=== PATIENT | female | born 1990 | race Hispanic/Latino ===

== ENCOUNTER 2016-09-26 09:32 | Emergency (ER) | payer MEDICAID, OTHER ==
[2016-09-26 09:32] VITALS: BMI 35.0
[2016-09-26 09:38] VITALS: BP 117/68; PULSE 79; RESP 18; TEMP 98.7; O2SAT 100
[2016-09-26] MEDS ORDERED: Naproxen 500 MG TAB PO ONE ×2 (10:15→10:22)
--- NOTE | 2016-09-26 10:38 | RAD ---
HISTORY: cough for 4 days COMPARISON: No prior. TECHNIQUE: Chest PA and lateral FINDINGS: LUNGS: No active pulmonary disease. PLEURA: No significant pleural effusion identified. No pneumothorax apparent. CARDIOVASCULAR: Normal. OSSEOUS STRUCTURES: No significant abnormalities. VISUALIZED UPPER ABDOMEN: Normal. OTHER FINDINGS: None. IMPRESSION: No active disease.
--- NOTE | 2016-09-26 10:58 | ED PDOC ---
HPI: General Adult Time Seen by Provider: 09/26/16 09:47 Chief Complaint (Nursing): Flu-like Symptoms History Per: Patient History/Exam Limitations: no limitations Additional Complaint(s): 25-year-old female, presents to the emergency department with complaints of cough and nasal congestion associated with fever for the past few days. No shortness of breath, vomiting, symptoms, or change in bowel habits/appetite. Sick contact at home is son with same symptoms. Past Medical History Reviewed: Historical Data, Nursing Documentation, Vital Signs Vital Signs: Last Vital Signs Temp 98.7 F 09/26/16 09:33 Pulse 79 09/26/16 09:33 Resp 18 09/26/16 09:33 BP 117/68 09/26/16 09:33 Pulse Ox 100 09/26/16 11:07 - Medical History PMH: Asthma, Migraine Denies: Chronic Kidney Disease Comment Only: HTN (during ) - Surgical History Surgical History: Appendectomy, - Family History Family History: States: Unknown Family Hx - Immunization History Hx Tetanus Toxoid Vaccination: No Hx Influenza Vaccination: No Hx Pneumococcal Vaccination: No - Home Medications Home Medications: Ambulatory Orders Medication Instructions Recorded Fioricet 1 tab PO PRN PRN 08/05/16 Promethazine DM [Phenergan DM 10 ml PO Q8H PRN #120 ml 09/26/16 Syrup] - Allergies Allergies/Adverse Reactions: Allergies Allergy/AdvReac Type Severity Reaction Status Date / Time No Known Allergies Allergy Verified 09/26/16 09:33 Review of Systems ROS Statement: Except As Marked, All Systems Reviewed And Found Negative Constitutional: Positive for: Fever ENT: Positive for: Nose Congestion Cardiovascular: Negative for: Chest Pain, Palpitations Respiratory: Positive for: Cough Musculoskeletal: Negative for: Back Pain Skin: Negative for: Rash Neurological: Negative for: Weakness, Numbness, Headache, Dizziness Physical Exam - Reviewed Nursing Documentation Reviewed: Yes Vital Signs Reviewed: Yes - Physical Exam Appears: Positive for: Non-toxic, No Acute Distress Head Exam: Positive for: ATRAUMATIC, NORMOCEPHALIC Skin: Positive for: Warm, Dry. Negative for: Rash Eye Exam: Positive for: Normal appearance Neck: Positive for: Painless ROM, Supple Cardiovascular/Chest: Positive for: Regular Rate, Rhythm Respiratory: Positive for: Normal Breath Sounds. Negative for: Accessory Muscle Use Gastrointestinal/Abdominal: Positive for: Soft. Negative for: Tenderness, Guarding, Rebound Extremity: Positive for: Normal ROM Neurologic/Psych: Positive for: Alert, Oriented - ECG O2 Sat by Pulse Oximetry: 100 - Radiology X-Ray: Read By Radiologist X-Ray Interpretation: No Acute Disease - Progress Re-evaluation Time: 11:33 Condition: Re-examined, Improved Medical Decision Making Medical Decision Making: Plan: * Chest XR * Naproxen * Rapid Strep * Reassess and Disposition Scribe Attestation: Documented by Samantha Egan acting as a scribe for Ami Pacheco MD. Provider Attestation: All medical record entries made by the Scribe were at my direction and personally dictated by me. I have reviewed the chart and agree that the record accurately reflects my personal performance of the history, physical exam, medical decision making, and the department course for this patient. I have also personally directed, reviewed, and agree with the discharge instructions and disposition. Disposition - Clinical Impression Clinical Impression: Acute viral syndrome - Patient ED Disposition Is Patient to be Admitted: No Doctor Will See Patient In The: Office Counseled Patient/Family Regarding: Diagnosis, Need For Followup, Rx Given - Disposition Disposition: Routine/Home Disposition Time: 11:33 Condition: IMPROVED Additional Instructions: chest x-ray normal rapid strep negative Prescriptions: Promethazine DM [Phenergan DM Syrup] 10 ml PO Q8H PRN #120 ml PRN Reason: Cough Instructions: Viral Syndrome (ED) - POA Present On Arrival: None
== END 2016-09-26 11:53 | disposition home or self-care (01) ==
LOC: H.ER 09:32
DX: B34.9 Viral infection, unspecified (principal); I10 Essential (primary) hypertension; J45.909 Unspecified asthma, uncomplicated

== ENCOUNTER 2016-10-28 10:36 | Emergency (ER) | payer MEDICAID ==
[2016-10-28 10:36] VITALS: BMI 35.0
--- NOTE | 2016-10-28 12:22 | ED PDOC ---
HPI: Dental Pain/Injury Time Seen by Provider: 10/28/16 12:13 Chief Complaint (Nursing): Dental Pain Chief Complaint (Provider): Dental Pain History Per: Patient History/Exam Limitations: no limitations Onset/Duration Of Symptoms: Days (x2 days) Current Symptoms Are (Timing): Still Present Additional Complaint(s): 25 y/o female with a history of asthma presents to the emergency department with a complaint of right sided dental pain that started yesterday, 10/27/2016. Patient took over the counter Excedrin and Advil PM at 7am today without the relief of symptoms. She has not seen a dentist as of yet. Patient denies fever or chills. She is tolerating liquids and solids. PMD: Dr. Constantino Nevarez MD ([place]) Dentist: None Past Medical History Reviewed: Historical Data, Nursing Documentation, Vital Signs - Medical History PMH: Asthma, Migraine Comment Only: HTN (during ) - Surgical History Surgical History: Appendectomy, - Family History Family History: States: No Known Family Hx - Living Arrangements Living Arrangements: With Family - Social History Current smoker - smoking cessation education provided: Yes (Light smoker < 10 cigarettes daily) Alcohol: Social Drugs: Denies - Home Medications Home Medications: Ambulatory Orders Medication Instructions Recorded Fioricet 1 tab PO PRN PRN 08/05/16 Promethazine DM [Phenergan DM 10 ml PO Q8H PRN #120 ml 09/26/16 Syrup] Clindamycin [Cleocin] 300 mg PO TID #21 cap 10/28/16 traMADol [Ultram] 50 mg PO TID PRN #8 tab 10/28/16 - Allergies Allergies/Adverse Reactions: Allergies Allergy/AdvReac Type Severity Reaction Status Date / Time No Known Allergies Allergy Verified 10/28/16 11:27 Review of Systems ROS Statement: Except As Marked, All Systems Reviewed And Found Negative Constitutional: Negative for: Fever, Chills ENT: Positive for: Other (pain to upper right molar region with facial pain) Cardiovascular: Negative for: Chest Pain Respiratory: Negative for: Cough Gastrointestinal: Negative for: Nausea, Vomiting Physical Exam - Reviewed Nursing Documentation Reviewed: Yes Vital Signs Reviewed: Yes - Physical Exam Appears: Positive for: Well, Non-toxic, No Acute Distress Head Exam: Positive for: ATRAUMATIC, NORMOCEPHALIC Skin: Positive for: Normal Color, Warm, Dry. Negative for: Rash Eye Exam: Positive for: Normal appearance, EOMI, PERRL ENT: Positive for: TM Is/Are (normal bilateral TM's), Other (Decayed posterior right upper molar tooth noted, tender to palpation, mild surrounding gingival swelling with no discrete abscess, airway patent, uvula midline, remaining dentition intact) Neck: Positive for: Painless ROM Cardiovascular/Chest: Positive for: Regular Rate, Rhythm Respiratory: Positive for: Normal Breath Sounds Neurologic/Psych: Positive for: Alert, Oriented - Laboratory Results Urine POC: Negative - ECG O2 Sat by Pulse Oximetry: 98 Pulse Ox Interpretation: Normal Medical Decision Making Medical Decision Making: Time: 12:13 Impression: dental caries, dental pain Plan: test PO tramadol Dispo Time: 12:42 Upon provider reevaluation patient is feeling better, is medically stable, and requires no further treatment in the ED at this time. Patient will be discharged home with Rx for Cleocin 300 mg and Ultram 50 mg PO. Counseling was provided and all questions were answered regarding diagnosis and need for follow up with dentist DARRICK. There is agreement to discharge plan. Return if symptoms persist or worsen. Clinical Impression: Dental Caries, Dental pain Disposition - Clinical Impression Clinical Impression: Dental caries - Patient ED Disposition Is Patient to be Admitted: No Counseled Patient/Family Regarding: Diagnosis, Need For Followup, Rx Given - Disposition Referrals: Constantino Nevarez MD [Medical Doctor] - Disposition: Routine/Home Disposition Time: 12:42 Condition: GOOD Additional Instructions: Take rx meds as directed. Follow up DARRICK with dentist. Prescriptions: Clindamycin [Cleocin] 300 mg PO TID #21 cap traMADol [Ultram] 50 mg PO TID PRN #8 tab PRN Reason: Pain, Moderate (4-7) Instructions: Dental Caries (ED), Toothache (ED)
[2016-10-28 12:57] VITALS: BP 132/74; PULSE 81; RESP 16; TEMP 98.3; O2SAT 98
== END 2016-10-28 13:13 | disposition home or self-care (01) ==
LOC: H.ER 10:36
DX: K02.9 Dental caries, unspecified (principal)

== ENCOUNTER 2016-12-15 15:08 | Inpatient (IN) | payer MEDICAID ==
[2016-12-15 15:09] VITALS: BMI 35.0
[2016-12-15] MEDS ORDERED: Albuterol-Ipratrop 3 mg / 0.5 (3 ml) UD INH STA (15:37)
[2016-12-15] MEDS ORDERED: Azithromycin 500 MG in Sodium Chloride 0.9% 250 ML IV STA (15:37)
--- NOTE | 2016-12-15 15:37 | ED PDOC ---
HPI: CCC, URI, Sore Throat Time Seen by Provider: 12/15/16 15:28 Chief Complaint (Nursing): Cough, Cold, Congestion Chief Complaint (Provider): Cough, Cold, Congestion History Per: Patient History/Exam Limitations: no limitations Onset/Duration Of Symptoms: Days Current Symptoms Are (Timing): Still Present Location Of Pain: Headache Sick Contacts (Context): None Associated Symptoms: Cough, Sputum Ear Symptoms: Bilateral: None Severity: Mild Additional Complaint(s): Patient is a 26 year old female who presents to ED for evaluation of cough and congestion for 1.5 weeks. States 10 days ago she was prescribed steroids by PMD for asthma exacerbation, completed course but symptoms continue. Denies chest pain, SOB or palpations. Notes wheezing and headache continued, cough productive of yellow/green sputum. Patient last took Mucinex at 0700 today with no relief. Patient also reports urinary frequency for 5 days without dysuria, abdominal pain or hematuria. Past Medical History Reviewed: Historical Data, Nursing Documentation, Vital Signs Vital Signs: Last Vital Signs Temp 98.6 F 12/15/16 21:21 Pulse 74 12/15/16 21:21 Resp 20 12/15/16 21:21 BP 110/70 12/15/16 21:21 Pulse Ox 99 12/15/16 21:21 - Medical History PMH: Asthma, Migraine Denies: Chronic Kidney Disease Comment Only: HTN (during ) - Surgical History Surgical History: Appendectomy, - Family History Family History: States: Unknown Family Hx - Living Arrangements Living Arrangements: With Family - Social History Current smoker - smoking cessation education provided: Yes Alcohol: None Drugs: Denies - Immunization History Hx Tetanus Toxoid Vaccination: No Hx Influenza Vaccination: No Hx Pneumococcal Vaccination: No - Home Medications Home Medications: Ambulatory Orders Medication Instructions Recorded Albuterol/Ipratropium [Combivent 1 puff IH Q6 PRN 12/15/16 Respimat] - Allergies Allergies/Adverse Reactions: Allergies Allergy/AdvReac Type Severity Reaction Status Date / Time No Known Allergies Allergy Verified 10/28/16 11:27 Review of Systems ROS Statement: Except As Marked, All Systems Reviewed And Found Negative Constitutional: Negative for: Fever, Weakness Eyes: Negative for: Vision Change ENT: Negative for: Ear Pain, Throat Pain Cardiovascular: Negative for: Chest Pain, Palpitations Respiratory: Positive for: Cough, Sputum, Wheezing. Negative for: Shortness of Breath Gastrointestinal: Negative for: Nausea, Vomiting, Abdominal Pain Genitourinary Female: Positive for: Frequency. Negative for: Dysuria, Hematuria Musculoskeletal: Negative for: Neck Pain, Back Pain Skin: Negative for: Rash Neurological: Positive for: Headache. Negative for: Weakness, Numbness Physical Exam - Reviewed Nursing Documentation Reviewed: Yes Vital Signs Reviewed: Yes - Physical Exam Appears: Positive for: Non-toxic, No Acute Distress Skin: Positive for: Normal Color, Warm. Negative for: Rash Eye Exam: Positive for: Normal appearance Neck: Positive for: Normal, Painless ROM Cardiovascular/Chest: Positive for: Regular Rate, Rhythm. Negative for: Murmur Respiratory: Positive for: Wheezing (minimal diffuse wheeze ). Negative for: Rales, Rhonchi, Stridor, Respiratory Distress Gastrointestinal/Abdominal: Positive for: Normal Exam. Negative for: Tenderness , Distended Extremity: Positive for: Normal ROM Neurologic/Psych: Positive for: Alert, Oriented - Laboratory Results Result Diagrams: 12/15/16 16:48 12/15/16 16:48 - ECG O2 Sat by Pulse Oximetry: 100 (RA) Pulse Ox Interpretation: Normal Medical Decision Making Medical Decision Making: Time: 1535 Initial impression: Viral illness. R/O UTI Initial plan: -- EKG -- CMP -- Urine preg -- CBC -- D-Dimer -- PT/PTT -- CXR -- Duoneb, Solumedrol IV and Zithromax IV -- U/A Scribe Attestation: Documented by Deborah Green acting as a scribe for Mary Kay Leo MD MD Scribe Attestation: All medical record entries made by the Scribe were at my direction and personally dictated by me. I have reviewed the chart and agree that the record accurately reflects my personal performance of the history, physical exam, medical decision making, and the department course for this patient. I have also personally directed, reviewed, and agree with the discharge instructions and disposition. ED OBSERVATION Date of observation admission: 12/15/16 Time of observation admission: 17:00 - Observation admission statement Patient is being placed in observation because:: Hyperglycemia, labs, IVF, reevaluation Disposition - Clinical Impression Clinical Impression: Asthma with bronchitis, Hyperglycemia - Patient ED Disposition Is Patient to be Admitted: Yes - Disposition Disposition Time: 19:45 Condition: STABLE - Pt Status Changed To: Hospital Disposition Of: Inpatient - Admit Certification Admit to Inpatient:: After my assessment, the patient will require hospitalization for at least two midnights. This is because of the severity of symptoms shown, intensity of services needed, and/or the medical risk in this patient being treated as an outpatient. - POA Present On Arrival: Poor Glycemic Control
[2016-12-15] MEDS ORDERED: Albuterol-Ipratrop 3 mg / 0.5 (3 ml) UD ONE (15:41)
[2016-12-15 17:00] LABS: BASO % 0.3 % (0.0-2.0); EOS # 0.1 K/uL (0.0-0.7); LYMPH # 2.7 K/uL (1.0-4.3); LYMPH % 26.4 % (20.0-40.0); MEAN CELL VOLUME 88.2 fl (81.0-99.0); MEAN CORPUSCULAR HEMOGLOBIN 28.2 pg (27.0-31.0); MEAN CORPUSCULAR HGB CONC 31.9 g/dL (33.0-37.0); MEAN PLATELET VOLUME 9.2 fl (7.2-11.7); MONO # 0.5 K/uL (0.0-0.8); MONO % 4.4 % (0.0-10.0); NEUT % 67.9 % (50.0-75.0); NRBC % 0.1 % (0.0-0.0); RED CELL DISTRIBUTION WIDTH 15.3 % (11.5-14.5); WHITE BLOOD COUNT 10.3 K/uL (4.8-10.8)
[2016-12-15 17:04] LABS: RBC URINE 10 /hpf (0-3); URINE BACTERIA RARE (<OCC); URINE BILIRUBIN NEGATIVE (NEGATIVE); URINE CALCIUM OXALATE CRYSTALS RARE /hpf (<OCC); URINE COLOR STRAW (YELLOW); URINE GLUCOSE (UA) >=500 mg/dL (Normal); URINE KETONE TRACE mg/dL (NEGATIVE); URINE LEUKOCYTE ESTERASE MOD Leu/uL (Negative); URINE PROTEIN NEGATIVE (NEGATIVE); URINE UROBILINOGEN 0.2-1.0 mg/dL (0.2-1.0); WBC URINE 19 /hpf (0-5)
[2016-12-15 17:05] LABS: URINE BLOOD TRACE (NEGATIVE)
[2016-12-15 17:12] LABS: ALB/GLOB RATIO 1.2 (1.0-2.1); ALKALINE PHOSPHATASE 164 U/L (38-126); ALT/SGPT 34 U/L (9-52); AST/SGOT 28 U/L (14-36); BILIRUBIN,TOTAL 0.3 mg/dl (0.2-1.3); BLOOD UREA NITROGEN 12 mg/dl (7-17); CALCIUM 9.5 mg/dL (8.4-10.2); CARBON DIOXIDE 28 mmol/L (22-30); CHLORIDE 96 mmol/L (98-107); GFR AFRICAN-AMERICAN > 60; SODIUM 136 mmol/l (132-148); TOTAL PROTEIN 8.1 G/DL (6.3-8.2)
[2016-12-15 17:15] LABS: GLUCOSE,RANDOM 551 mg/dL (65-105)
[2016-12-15 17:30] LABS: PARTIAL THROMBOPLASTIN TIME 26.4 Seconds (25.6-37.1)
[2016-12-15] MEDS ORDERED: Sodium Chloride 0.9% 1,000 ML IV STA (17:31)
[2016-12-15 17:46] LABS: VENOUS BLOOD GAS BASE EXCESS 0.2 mmol/L (0.0-2.0); VENOUS BLOOD GAS PCO2 53 mmHg (40-60); VENOUS BLOOD PH 7.32 (7.32-7.43)
[2016-12-15] MEDS ORDERED: Sodium Chloride 0.9% 1,000 ML IV ONE (18:30)
[2016-12-15] MEDS ORDERED: Albuterol-Ipratrop 3 mg / 0.5 (3 ml) UD INH PRN (20:43)
[2016-12-15] MEDS: Insulin Regular 100 units/ml SC SCH (21:59)
[2016-12-15] MEDS ORDERED: Moxifloxacin IV 400mg/250ml NS 400 MG/250 ML BAG IVPB SCH (23:00)
[2016-12-15] MEDS ORDERED: Pneumococcal 23-Valent Vaccine IM ONE (23:00)
[2016-12-15] MEDS: methylPREDNISolone 80 MG in Sodium Chloride 0.9% 50 ML IVPB SCH (23:59)
[2016-12-16] MEDS: Insulin Regular 100 units/ml SC SCH ×5 (06:01→23:00)
[2016-12-16 07:18] LABS: HEMATOCRIT 40.2 % (34.0-47.0); MEAN CELL VOLUME 87.3 fl (81.0-99.0); MEAN CORPUSCULAR HEMOGLOBIN 28.3 pg (27.0-31.0); MEAN CORPUSCULAR HGB CONC 32.4 g/dL (33.0-37.0); RED CELL DISTRIBUTION WIDTH 15.6 % (11.5-14.5); WHITE BLOOD COUNT 13.7 K/uL (4.8-10.8)
[2016-12-16 07:43] LABS: ALB/GLOB RATIO 1.2 (1.0-2.1); ALKALINE PHOSPHATASE 115 U/L (38-126); ALT/SGPT 32 U/L (9-52); AST/SGOT 20 U/L (14-36); BILIRUBIN,TOTAL 0.4 mg/dl (0.2-1.3); BLOOD UREA NITROGEN 13 mg/dl (7-17); CALCIUM 9.1 mg/dL (8.4-10.2); CARBON DIOXIDE 21 mmol/L (22-30); CHLORIDE 103 mmol/L (98-107); GFR AFRICAN-AMERICAN > 60; GLUCOSE,RANDOM 272 mg/dL (65-105); POTASSIUM 4.4 MMOL/L (3.6-5.0); SODIUM 138 mmol/l (132-148); TOTAL PROTEIN 7.9 G/DL (6.3-8.2)
--- NOTE | 2016-12-16 08:51 | CARD ---
APPROVED REPORT EKG Measurement Heart [id number] <Conclusion> Normal sinus rhythm Nonspecific ST and T wave abnormality Abnormal ECG
[2016-12-16] MEDS: methylPREDNISolone 80 MG in Sodium Chloride 0.9% 50 ML IVPB SCH ×2 (09:13→17:03)
--- NOTE | 2016-12-16 09:27 | CP.PCM.HP ---
History of Present Illness - History of Present Illness History of Present Illness: Patient is a 26 year old female who presents to ED for evaluation of cough and congestion for 1.5 weeks. States 10 days ago she was prescribed steroids by PMD for asthma exacerbation, completed course but symptoms continue. Denies chest pain, SOB or palpations. Notes wheezing and headache continued, cough productive of yellow/green sputum. Patient last took Mucinex at 0700 today with no relief. Patient also reports urinary frequency for 5 days without dysuria, abdominal pain or hematuria. Present on Admission - Present on Admission Any Indicators Present on Admission: Yes Past Patient History - Infectious Disease Hx of Infectious Diseases: None - Past Social History Alcohol: None Drugs: Denies - CARDIAC Hx Hypertension: (during ) - PULMONARY Hx Asthma: Yes - NEUROLOGICAL Hx Migraine: Yes - HEENT Hx HEENT Problems: No - RENAL Hx Chronic Kidney Disease: No - ENDOCRINE/METABOLIC Hx Endocrine Disorders: Yes Other/Comment: gestational DM - HEMATOLOGICAL/ONCOLOGICAL Hx Blood Disorders: No - INTEGUMENTARY Hx Dermatological Problems: No - MUSCULOSKELETAL/RHEUMATOLOGICAL Hx Falls: No - GASTROINTESTINAL Hx Gastrointestinal Disorders: No - GENITOURINARY/GYNECOLOGICAL Hx Genitourinary Disorders: No - PSYCHIATRIC Hx Substance Use: No - SURGICAL HISTORY Hx Appendectomy: Yes - ANESTHESIA Hx Anesthesia: Yes Hx Anesthesia Reactions: No Meds Allergies/Adverse Reactions: Allergies Allergy/AdvReac Type Severity Reaction Status Date / Time No Known Allergies Allergy Verified 10/28/16 11:27 Physical Exam - Constitutional Appears: Well, Non-toxic - Head Exam Head Exam: NORMAL INSPECTION - Eye Exam Eye Exam: Normal appearance Pupil Exam: NORMAL ACCOMODATION - ENT Exam ENT Exam: Mucous Membranes Moist - Respiratory Exam Respiratory Exam: Wheezes, NORMAL BREATHING PATTERN - GI/Abdominal Exam GI & Abdominal Exam: Normal Bowel Sounds - Extremities Exam Extremities exam: Positive for: normal inspection Results - Vital Signs Recent Vital Signs: Last Vital Signs Temp 97.5 F L 12/16/16 00:22 Pulse 81 12/16/16 00:22 Resp 20 12/16/16 00:22 BP 118/68 12/16/16 00:22 Pulse Ox 98 12/16/16 00:22 - Labs Result Diagrams: 12/16/16 05:35 12/16/16 05:35 Labs: Laboratory Results - last 24 hr 12/15/16 12/15/16 12/15/16 17:30 17:32 19:33 WBC RBC Hgb Hct MCV MCH MCHC RDW Plt Count pO2 34 VBG pH 7.32 VBG pCO2 53 VBG HCO3 24.1 VBG O2 Sat (Calc) 67.3 H VBG Base Excess 0.2 Blood Gas Comments 14 Crit Value Called To Vaughn ledezma r.n. Crit Value Read Back Y Blood Gas Notified Time 1746 Sodium Potassium Chloride Carbon Dioxide Anion Gap BUN Creatinine Est GFR ( Amer) Est GFR (Non-Af Amer) POC Glucose (mg/dL) 272 H Random Glucose Calcium Total Bilirubin AST ALT Alkaline Phosphatase Troponin I < 0.0120 Total Protein Albumin Globulin Albumin/Globulin Ratio 12/15/16 12/16/16 12/16/16 21:30 01:59 05:35 WBC 13.7 H RBC 4.60 Hgb 13.0 Hct 40.2 MCV 87.3 MCH 28.3 MCHC 32.4 L RDW 15.6 H Plt Count 273 pO2 VBG pH VBG pCO2 VBG HCO3 VBG O2 Sat (Calc) VBG Base Excess Blood Gas Comments Crit Value Called To Crit Value Read Back Blood Gas Notified Time Sodium Potassium Chloride Carbon Dioxide Anion Gap BUN Creatinine Est GFR ( Amer) Est GFR (Non-Af Amer) POC Glucose (mg/dL) 345 H 280 H Random Glucose Calcium Total Bilirubin AST ALT Alkaline Phosphatase Troponin I Total Protein Albumin Globulin Albumin/Globulin Ratio 12/16/16 12/16/16 05:35 05:56 WBC RBC Hgb Hct MCV MCH MCHC RDW Plt Count pO2 VBG pH VBG pCO2 VBG HCO3 VBG O2 Sat (Calc) VBG Base Excess Blood Gas Comments Crit Value Called To Crit Value Read Back Blood Gas Notified Time Sodium 138 Potassium 4.4 Chloride 103 Carbon Dioxide 21 L Anion Gap 18 BUN 13 Creatinine 0.4 L Est GFR ( Amer) > 60 Est GFR (Non-Af Amer) > 60 POC Glucose (mg/dL) 247 H Random Glucose 272 H Calcium 9.1 Total Bilirubin 0.4 AST 20 ALT 32 Alkaline Phosphatase 115 Troponin I Total Protein 7.9 Albumin 4.3 Globulin 3.7 Albumin/Globulin Ratio 1.2 Assessment & Plan - Assessment and Plan (Free Text) Assessment: 1. asthma exacerbation cont nebs solumedrol q8hrs start rocephin and zithromax for elev wbc will cont to monitor 2. DM RISS cont to monitor diabetic diet.
--- NOTE | 2016-12-16 10:12 | RAD ---
PROCEDURE: Chest two views HISTORY: Chest pain COMPARISON: 09/26/2016. TECHNIQUE: Standard protocol for this study/examination. FINDINGS: No active pulmonary disease. No pulmonary nodules, masses or infiltrates. No evidence of acute, significant cardiovascular disease. No significant pleural, osseous or subdiaphragmatic abnormalities. IMPRESSION: No active disease. No acute/significant interval changes.
[2016-12-16 11:41] LABS: RBC URINE 3 /hpf (0-3); URINE BILIRUBIN NEGATIVE (NEGATIVE); URINE BLOOD NEGATIVE (NEGATIVE); URINE COLOR YELLOW (YELLOW); URINE GLUCOSE (UA) >=500 mg/dL (Normal); URINE KETONE 80 mg/dL (NEGATIVE); URINE LEUKOCYTE ESTERASE NEG Leu/uL (Negative); URINE PROTEIN NEGATIVE (NEGATIVE); URINE UROBILINOGEN 0.2-1.0 mg/dL (0.2-1.0); WBC URINE 4 /hpf (0-5)
[2016-12-16] MEDS: Azithromycin 500 MG in Sodium Chloride 0.9% 250 ML IVPB SCH (12:21)
[2016-12-16] MEDS ORDERED: Insulin Regular 100 units/ml SC ONE (12:34)
[2016-12-16] MEDS ORDERED: ZINC OXIDE CREAM(DESITIN) TOP PRN (20:16)
[2016-12-17] MEDS: methylPREDNISolone 80 MG in Sodium Chloride 0.9% 50 ML IVPB SCH ×2 (00:09→08:39)
[2016-12-17 06:47] LABS: HEMATOCRIT 38.3 % (34.0-47.0); MEAN CELL VOLUME 87.6 fl (81.0-99.0); MEAN CORPUSCULAR HEMOGLOBIN 28.2 pg (27.0-31.0); MEAN CORPUSCULAR HGB CONC 32.2 g/dL (33.0-37.0); RED CELL DISTRIBUTION WIDTH 15.7 % (11.5-14.5); WHITE BLOOD COUNT 14.6 K/uL (4.8-10.8)
[2016-12-17 07:26] LABS: BLOOD UREA NITROGEN 15 mg/dl (7-17); CALCIUM 8.9 mg/dL (8.4-10.2); CARBON DIOXIDE 19 mmol/L (22-30); CHLORIDE 102 mmol/L (98-107); GFR AFRICAN-AMERICAN > 60; POTASSIUM 4.4 MMOL/L (3.6-5.0); SODIUM 135 mmol/l (132-148)
[2016-12-17 07:39] LABS: GLUCOSE,RANDOM 418 mg/dL (65-105)
[2016-12-17] MEDS: Insulin Regular 100 units/ml SC SCH ×4 (08:38→22:02)
[2016-12-17] MEDS: Azithromycin 500 MG in Sodium Chloride 0.9% 250 ML IVPB SCH (08:41)
--- NOTE | 2016-12-17 10:15 | PQF GENQUE ---
Dr. Esparza, Please clarify type of asthma: if known Childhood Cough variant Exercise induced Late onset Mild intermittent Mild persistent Moderate persistent Severe persistent With bronchitis(please clarify acuity of bronchitis) With chronic lung disease (please document specific chronic lung disease) Other (please specify) OR: Unable to determine OR Unknown H and P:Assessment: 1. asthma exacerbation cont nebs solumedrol q8hrs start rocephin and zithromax for elev wbc will cont to monitor This form is a permanent part of the medical record Clarification of your documentation is requested to better reflect the severity of illness and intensity of treatment of your patient. Indicators present [] Specify: [] [] Specify: [] [] Specify: [] [] Specify: [] Location in the medical record that reflects the above clinical findings: [] Treatment Provided: [] PHYSICIAN'S RESPONSE Based on your medical judgment of the clinical indicators outlined above please clarify the following: [] Practitioner response [] If unable to determine, please check the box, sign and date. Present On Admission (POA) Indicator: [] Present at the time of admission [] Not present at the time of admission [] Clinically Undetermined In responding to this query, please exercise your independent professional judgment. The fact that a question is asked does not imply that any particular answer is desired or expected. Thank you for your clarification on this documentation. If you have any questions please call. * Thank you, Adilia Heart RN BSN ext. #[phone] MTDD
--- NOTE | 2016-12-17 11:15 | CP.PCM.PN ---
Subjective - Date & Time of Evaluation Date of Evaluation: 12/17/16 Time of Evaluation: 10:00 - Subjective Subjective: pt seen and examined at bedside. nad. pt is feeling better. BS remain elev in the 400's. tolerating po. no fever Objective - Vital Signs/Intake and Output Vital Signs (last 24 hours): Temp Pulse Resp BP Pulse Ox 97.8 F 68 18 109/67 99 12/17/16 08:24 12/17/16 08:24 12/17/16 08:24 12/17/16 08:24 12/17/16 08:24 - Medications Medications: Current Medications Albuterol/Ipratropium (Duoneb 3 Mg/0.5 Mg (3 Ml) Ud) 3 ml INH RQ6 PRN PRN Reason: Shortness of Breath Ceftriaxone Sodium 1 gm/ (Sodium Chloride) 100 mls @ 100 mls/hr IVPB DAILY [facility] Last Admin: 12/17/16 08:40 Dose: 100 mls/hr Azithromycin 500 mg/ Sodium (Chloride) 250 mls @ 250 mls/hr IVPB DAILY [facility] Last Admin: 12/17/16 08:41 Dose: 250 mls/hr Methylprednisolone 30 mg/ (Sodium Chloride) 50 mls @ 100 mls/hr IVPB Q12 [facility] Insulin Human Regular (Humulin R) 0 units SC ACCU-CHECK MED PRN Reason: Protocol Last Admin: 12/17/16 08:38 Dose: 10 units Petrolatum (Desitin 13%) 1 applic TOP TID PRN PRN Reason: redness Last Admin: 12/16/16 21:44 Dose: 1 applic - Labs Labs: 12/17/16 05:25 12/17/16 05:25 PT 10.4 Seconds (9.8-13.1) 12/15/16 16:48 INR 0.9 (0.9-1.2) 12/15/16 16:48 APTT 26.4 Seconds (25.6-37.1) 12/15/16 16:48 - Constitutional Appears: Well, Non-toxic - Eye Exam Eye Exam: EOMI, Normal appearance Pupil Exam: NORMAL ACCOMODATION - ENT Exam ENT Exam: Mucous Membranes Moist - Neck Exam Neck Exam: Full ROM - Respiratory Exam Respiratory Exam: Clear to Ausculation Bilateral - Cardiovascular Exam Cardiovascular Exam: REGULAR RHYTHM - GI/Abdominal Exam GI & Abdominal Exam: Soft, Normal Bowel Sounds - Extremities Exam Extremities Exam: Full ROM, Normal Inspection Assessment and Plan - Assessment and Plan (Free Text) Assessment: 1. asthma exac pt feeling better taper steroids cont abx cont nebs. 2. DM f/u aic bs in 400's cont RISS d/c planning for tomorrow if patient cont to improve
[2016-12-17] MEDS ORDERED: Fluconazole 150 MG TAB PO ONE (14:24)
[2016-12-17] MEDS: methylPREDNISolone 30 MG in Sodium Chloride 0.9% 50 ML IVPB SCH (20:10)
[2016-12-17] MEDS ORDERED: Insulin Regular 100 units/ml SC ONE ×2 (23:00)
[2016-12-18] MEDS: Insulin Regular 100 units/ml SC SCH ×2 (06:30→11:11)
[2016-12-18 06:45] LABS: HEMATOCRIT 38.9 % (34.0-47.0); MEAN CELL VOLUME 89.2 fl (81.0-99.0); MEAN CORPUSCULAR HEMOGLOBIN 28.3 pg (27.0-31.0); MEAN CORPUSCULAR HGB CONC 31.7 g/dL (33.0-37.0); RED CELL DISTRIBUTION WIDTH 15.8 % (11.5-14.5); WHITE BLOOD COUNT 14.4 K/uL (4.8-10.8)
[2016-12-18 07:07] LABS: BLOOD UREA NITROGEN 16 mg/dl (7-17); CALCIUM 9.1 mg/dL (8.4-10.2); CARBON DIOXIDE 24 mmol/L (22-30); CHLORIDE 103 mmol/L (98-107); GFR AFRICAN-AMERICAN > 60; GLUCOSE,RANDOM 383 mg/dL (65-105); POTASSIUM 4.4 MMOL/L (3.6-5.0); SODIUM 136 mmol/l (132-148)
[2016-12-18] MEDS: methylPREDNISolone 30 MG in Sodium Chloride 0.9% 50 ML IVPB SCH (08:16)
[2016-12-18 08:17] VITALS: BP 104/68; PULSE 54; RESP 20; TEMP 97.7; O2SAT 99
[2016-12-18] MEDS: Azithromycin 500 MG in Sodium Chloride 0.9% 250 ML IVPB SCH (08:17)
--- NOTE | 2016-12-18 08:51 | CP.PCM.PN ---
Subjective - Date & Time of Evaluation Date of Evaluation: 12/18/16 Time of Evaluation: 08:51 Objective - Vital Signs/Intake and Output Vital Signs (last 24 hours): Temp Pulse Resp BP Pulse Ox 97.7 F 54 L 20 104/68 99 12/18/16 08:17 12/18/16 08:17 12/18/16 08:17 12/18/16 08:17 12/18/16 08:17 - Medications Medications: Current Medications Albuterol/Ipratropium (Duoneb 3 Mg/0.5 Mg (3 Ml) Ud) 3 ml INH RQ6 PRN PRN Reason: Shortness of Breath Ceftriaxone Sodium 1 gm/ (Sodium Chloride) 100 mls @ 100 mls/hr IVPB DAILY [facility] Last Admin: 12/18/16 08:16 Dose: 100 mls/hr Azithromycin 500 mg/ Sodium (Chloride) 250 mls @ 250 mls/hr IVPB DAILY [facility] Last Admin: 12/18/16 08:17 Dose: 250 mls/hr Methylprednisolone 30 mg/ (Sodium Chloride) 50 mls @ 100 mls/hr IVPB Q12 [facility] Last Admin: 12/18/16 08:16 Dose: 100 mls/hr Insulin Human Regular (Humulin R) 0 units SC ACCU-CHECK MED PRN Reason: Protocol Last Admin: 12/18/16 06:30 Dose: 6 units Petrolatum (Desitin 13%) 1 applic TOP TID PRN PRN Reason: redness Last Admin: 12/16/16 21:44 Dose: 1 applic - Labs Labs: 12/18/16 05:25 12/18/16 05:25 PT 10.4 Seconds (9.8-13.1) 12/15/16 16:48 INR 0.9 (0.9-1.2) 12/15/16 16:48 APTT 26.4 Seconds (25.6-37.1) 12/15/16 16:48
--- NOTE | 2016-12-18 21:27 | CP.PCM.DIS ---
Provider - Provider Date of Admission: 12/16/16 13:49 Attending physician: Aneesh Esparza MD Time Spent in preparation of Discharge (in minutes): 15 Hospital Course - Lab Results Lab Results: Most Recent Lab Values WBC 14.4 K/uL (4.8-10.8) H 12/18/16 05:25 RBC 4.37 Mil/uL (3.80-5.20) 12/18/16 05:25 Hgb 12.4 g/dL (12.0-16.0) 12/18/16 05:25 Hct 38.9 % (34.0-47.0) 12/18/16 05:25 MCV 89.2 fl (81.0-99.0) 12/18/16 05:25 MCH 28.3 pg (27.0-31.0) 12/18/16 05:25 MCHC 31.7 g/dL (33.0-37.0) L 12/18/16 05:25 RDW 15.8 % (11.5-14.5) H 12/18/16 05:25 Plt Count 260 K/uL (130-400) 12/18/16 05:25 MPV 9.2 fl (7.2-11.7) 12/15/16 16:48 Neut % (Auto) 67.9 % (50.0-75.0) 12/15/16 16:48 Lymph % (Auto) 26.4 % (20.0-40.0) 12/15/16 16:48 [place] % (Auto) 4.4 % (0.0-10.0) 12/15/16 16:48 Eos % (Auto) 1.0 % (0.0-4.0) 12/15/16 16:48 Baso % (Auto) 0.3 % (0.0-2.0) 12/15/16 16:48 Neut # 7.0 K/uL (1.8-7.0) 12/15/16 16:48 Lymph # 2.7 K/uL (1.0-4.3) 12/15/16 16:48 [place] # 0.5 K/uL (0.0-0.8) 12/15/16 16:48 Eos # 0.1 K/uL (0.0-0.7) 12/15/16 16:48 Baso # 0.0 K/uL (0.0-0.2) 12/15/16 16:48 PT 10.4 Seconds (9.8-13.1) 12/15/16 16:48 INR 0.9 (0.9-1.2) 12/15/16 16:48 APTT 26.4 Seconds (25.6-37.1) 12/15/16 16:48 D-Dimer, Quantitative 0.38 mg/L FEU (0-0.50) 12/15/16 16:48 pO2 34 mm/Hg (30-55) 12/15/16 17:32 VBG pH 7.32 (7.32-7.43) 12/15/16 17:32 VBG pCO2 53 mmHg (40-60) 12/15/16 17:32 VBG HCO3 24.1 mmol/L 12/15/16 17:32 VBG O2 Sat (Calc) 67.3 % (40-65) H 12/15/16 17:32 VBG Base Excess 0.2 mmol/L (0.0-2.0) 12/15/16 17:32 Blood Gas Comments 14 12/15/16 17:32 Crit Value Called To Vaughn ledezma r.n. 12/15/16 17:32 Crit Value Read Back Y 12/15/16 17:32 Blood Gas Notified Time 1746 12/15/16 17:32 Sodium 136 mmol/l (132-148) 12/18/16 05:25 Potassium 4.4 MMOL/L (3.6-5.0) 12/18/16 05:25 Chloride 103 mmol/L (98-107) 12/18/16 05:25 Carbon Dioxide 24 mmol/L (22-30) 12/18/16 05:25 Anion Gap 14 (10-20) 12/18/16 05:25 BUN 16 mg/dl (7-17) 12/18/16 05:25 Creatinine 0.5 mg/dL (0.7-1.2) L 12/18/16 05:25 Est GFR ( Amer) > 60 12/18/16 05:25 Est GFR (Non-Af Amer) > 60 12/18/16 05:25 POC Glucose (mg/dL) 385 mg/dL (65-110) H 12/18/16 11:55 Random Glucose 383 mg/dL (65-105) H 12/18/16 05:25 Hemoglobin A1c 12.2 % (4.2-6.5) H 12/17/16 09:35 Calcium 9.1 mg/dL (8.4-10.2) 12/18/16 05:25 Total Bilirubin 0.4 mg/dl (0.2-1.3) 12/16/16 05:35 AST 20 U/L (14-36) 12/16/16 05:35 ALT 32 U/L (9-52) 12/16/16 05:35 Alkaline Phosphatase 115 U/L (38-126) 12/16/16 05:35 Troponin I < 0.0120 ng/mL (0.00-0.120) 12/15/16 17:30 Total Protein 7.9 G/DL (6.3-8.2) 12/16/16 05:35 Albumin 4.3 g/dL (3.5-5.0) 12/16/16 05:35 Globulin 3.7 gm/dL (2.2-3.9) 12/16/16 05:35 Albumin/Globulin Ratio 1.2 (1.0-2.1) 12/16/16 05:35 Urine Color Yellow (YELLOW) 12/16/16 11:00 Urine Clarity Clear (Clear) 12/16/16 11:00 Urine pH 5.0 (5.0-8.0) 12/16/16 11:00 Ur Specific [place] 1.037 (1.003-1.030) H 12/16/16 11:00 Urine Protein Negative mg/dL (NEGATIVE) 12/16/16 11:00 Urine Glucose (UA) >=500 mg/dL (Normal) 12/16/16 11:00 Urine Ketones 80 mg/dL (NEGATIVE) 12/16/16 11:00 Urine Blood Negative (NEGATIVE) 12/16/16 11:00 Urine Nitrate Negative (NEGATIVE) 12/16/16 11:00 Urine Bilirubin Negative (NEGATIVE) 12/16/16 11:00 Urine Urobilinogen 0.2-1.0 mg/dL (0.2-1.0) 12/16/16 11:00 Ur Leukocyte Esterase Neg [place]/uL (Negative) 12/16/16 11:00 Urine RBC (Auto) 3 /hpf (0-3) 12/16/16 11:00 Urine Microscopic WBC 4 /hpf (0-5) 12/16/16 11:00 Ur Squamous Epith Cells 3 /hpf (0-5) 12/16/16 11:00 Calcium Oxalate Crystal Rare /hpf (<OCC) 12/15/16 16:48 Urine Bacteria Rare (<OCC) 12/15/16 16:48 Discharge Exam - Head Exam Head Exam: ATRAUMATIC, NORMAL INSPECTION, NORMOCEPHALIC - Eye Exam Eye Exam: EOMI, Normal appearance, PERRL Pupil Exam: NORMAL ACCOMODATION, PERRL - Respiratory Exam Respiratory Exam: Clear to PA & Lateral, NORMAL BREATHING PATTERN, UNREMARKABLE - Cardiovascular Exam Cardiovascular Exam: REGULAR RHYTHM, RRR, +S1, +S2 - GI/Abdominal Exam GI & Abdominal Exam: Normal Bowel Sounds, Soft, Unremarkable - Extremities Exam Extremities exam: full ROM, normal capillary refill, normal inspection, pedal pulses present - Neurological Exam Neurological exam: Alert, CN II-XII Intact, Normal Gait, Oriented x3, Reflexes Normal - Psychiatric Exam Psychiatric exam: Normal Affect, Normal Mood - Skin Skin Exam: Dry, Intact, Normal Color, Warm - Additional Findings Additional findings: kaelyn rn at bedside, renitals and rectal areal erythematous Discharge Plan - Discharge Medications Prescriptions: Albuterol HFA [Ventolin HFA 90 mcg/actuation (8 g)] 2 puff IH [id number] #1 puff Albuterol/Ipratropium [Duoneb 3 mg/0.5 mg (3 ml) UD] 3 ml INH RQ6 PRN #100 unit PRN Reason: Shortness Of Breath Amoxicillin/Clavulanate [Augmentin 875 MG-125 MG] 1 tab PO BID #10 tab Azithromycin [Zithromax] 250 mg PO DAILY #3 tab Insulin Detemir [Levemir] 10 unit SC HS #10 ml Insulin Human Regular [HumuLIN R] 0 units SC ACHS #10 ml Methylprednisolone [Medrol Dose Pack (21 tabs)] 4 mg PO TID #21 mg Nebulizer and Compressor [Easy Air Compressor Nebulizer] 1 each MC BID #1 each Nystatin/Triamcinolone [Mycolog Cream] 1 appl TP BID #1 tube Salmeterol Xinafoate/Fluticaso [Advair Hfa 230/21] 1 aer IH BID #1 aer Syringe and Needle,Insulin,1Ml [Easy-Touch Insulin Syringe] 1 each QID #100 disp.syrin Zinc Oxide 13% [Desitin 13%] 1 applic TOP TID PRN #1 bottle PRN Reason: redness - Follow Up Plan Condition: STABLE Disposition: HOME/ ROUTINE Instructions: Methylprednisolone (By injection), Moxifloxacin (By injection), Insulin Human Regular (By injection), Asthma (DC), Diabetes Mellitus Type 2 in Adults (GEN) Additional Instructions: lungs clr, no complaints except erythema and discomfort w/ defication from irritation of gentials. relief w/ nystatin. no f/c, n/v/d. glucose noted. a1c 12.2. has h/o diet controlled dm. is comfortable w/ glucose checking and self injecting. willdc home w/ riss, levemir, close f/u while on steorids. final dx-iddm, asthma exascerbation, fungal rash to gential area Referrals: Arnie Rodriguez, DNP, PATIENT ATTENDANT [Advanced Practice Nurse] -
== END 2016-12-18 13:09 | disposition home or self-care (01) | DRG 96 ==
LOC: H.ER 15:08 → H.EROBSV 17:00 → H.ERHOLD 19:45 → UNDOADMOB 19:45 → H.ERHOLD 20:23 → H.MEDSURG1 21:12 → OBSVTOIN 12-16 13:49
PROVIDERS: ADMIT Family Medicine; ATTEND Family Medicine
PROC: 3E0F73Z Introduction of Anti-inflammatory into Respiratory Tract, Via Natural or Artificial Opening (ICD-10-PCS; principal; 2016-12-16)
PROC: 3E0234Z Introduction of Serum, Toxoid and Vaccine into Muscle, Percutaneous Approach (ICD-10-PCS; 2016-12-16)
DX: J45.901 Unspecified asthma with (acute) exacerbation (principal); E11.65 Type 2 diabetes mellitus with hyperglycemia; B48.8 Other specified mycoses; Z23 Encounter for immunization; F17.200 Nicotine dependence, unspecified, uncomplicated; Z86.32 Personal history of gestational diabetes

== ENCOUNTER 2017-08-13 16:39 | Emergency (ER) | payer MEDICAID ==
[2017-08-13 16:39] VITALS: BMI 35.0
[2017-08-13 16:56] VITALS: BP 107/62; PULSE 92; RESP 18; TEMP 97.7; O2SAT 99
--- NOTE | 2017-08-13 18:23 | ED PDOC ---
HPI: General Adult Time Seen by Provider: 08/13/17 18:17 Chief Complaint (Nursing): GI Problem Chief Complaint (Provider): vomiting, headache History Per: Patient Past Medical History Vital Signs: Last Vital Signs Temp 97.7 F 08/13/17 16:53 Pulse 92 H 08/13/17 16:53 Resp 18 08/13/17 16:53 BP 107/62 08/13/17 16:53 Pulse Ox 99 08/13/17 16:53 - Medical History PMH: Asthma, Migraine Denies: Chronic Kidney Disease Comment Only: HTN (during ) - Surgical History Surgical History: Appendectomy, - Family History Family History: States: Unknown Family Hx - Immunization History Hx Tetanus Toxoid Vaccination: No Hx Influenza Vaccination: No Hx Pneumococcal Vaccination: No - Home Medications Home Medications: Ambulatory Orders Medication Instructions Recorded Albuterol HFA [Ventolin HFA 90 2 puff IH [id number] #1 puff 12/18/16 mcg/actuation (8 g)] Albuterol/Ipratropium [Duoneb 3 3 ml INH RQ6 PRN #100 unit 12/18/16 mg/0.5 mg (3 ml) UD] Amoxicillin/Clavulanate [Augmentin 1 tab PO BID #10 tab 12/18/16 875 MG-125 MG] Azithromycin [Zithromax] 250 mg PO DAILY #3 tab 12/18/16 Insulin Detemir [Levemir] 10 unit SC HS #10 ml 12/18/16 Insulin Human Regular [HumuLIN R] 0 units SC ACHS #10 ml 12/18/16 Methylprednisolone [Medrol Dose 4 mg PO TID #21 mg 12/18/16 Pack (21 tabs)] Nebulizer and Compressor [Easy Air 1 each MC BID #1 each 12/18/16 Compressor Nebulizer] Nystatin/Triamcinolone [Mycolog 1 appl TP BID #1 tube 12/18/16 Cream] Salmeterol Xinafoate/Fluticaso 1 aer IH BID #1 aer 12/18/16 [Advair Hfa 230/21] Syringe and Needle,Insulin,1Ml 1 each MC QID #100 disp.syrin 12/18/16 [Easy-Touch Insulin Syringe] Zinc Oxide 13% [Desitin 13%] 1 applic TOP TID PRN #1 bottle 12/18/16 - Allergies Allergies/Adverse Reactions: Allergies Allergy/AdvReac Type Severity Reaction Status Date / Time No Known Allergies Allergy Verified 08/13/17 16:53 - ECG O2 Sat by Pulse Oximetry: 99 Disposition - Disposition
== END 2017-08-13 18:22 | disposition left against medical advice (07) ==
LOC: H.ER 16:39
DX: Z02.89 Encounter for other administrative examinations (principal)

== ENCOUNTER 2017-09-28 11:21 | Emergency (ER) | payer MEDICAID ==
[2017-09-28 11:22] VITALS: BMI 35.0
[2017-09-28 11:34] VITALS: BP 142/88; PULSE 66; RESP 16; TEMP 98.1; O2SAT 100
--- NOTE | 2017-09-28 12:11 | ED PDOC ---
HPI: Dental Pain/Injury Time Seen by Provider: 09/28/17 11:40 Chief Complaint (Nursing): Dental Pain Chief Complaint (Provider): Dental pain History Per: Patient History/Exam Limitations: no limitations Onset/Duration Of Symptoms: Days (months), Persistent (x1 week), Worse Since ( x1 week) Current Symptoms Are (Timing): Still Present Quality: "Pain" Additional Complaint(s): Abiola Wen is a 26 year old female, with a past medical history of diabetes and migraines, who presents to the emergency department complaining of dental pain onset for months but worst and more persistent in the past week. She noticed an increasing pain in lower mandible. Patient has been taking Motrin 800 mg without any pain relief. Patient states she scheduled an appointment for wisdom tooth removal in x1 month. She denies any fever, chills or other medical complaints. PMD: Constantino Nevarez Past Medical History Reviewed: Historical Data, Nursing Documentation, Vital Signs Vital Signs: Last Vital Signs Temp 98.1 F 09/28/17 11:30 Pulse 66 09/28/17 11:30 Resp 16 09/28/17 11:30 BP 142/88 09/28/17 11:30 Pulse Ox 100 09/28/17 11:30 - Medical History PMH: Asthma, Diabetes (gestational), Migraine Denies: Chronic Kidney Disease Comment Only: HTN (during ) - Surgical History Surgical History: Appendectomy, - Family History Family History: States: Unknown Family Hx - Social History Current smoker - smoking cessation education provided: Yes (light smoker <10 cigarettes daily) Alcohol: None Drugs: Denies - Immunization History Hx Tetanus Toxoid Vaccination: No Hx Influenza Vaccination: No Hx Pneumococcal Vaccination: No - Home Medications Home Medications: Ambulatory Orders Medication Instructions Recorded Albuterol HFA [Ventolin HFA 90 2 puff IH [id number] #1 puff 12/18/16 mcg/actuation (8 g)] Albuterol/Ipratropium [Duoneb 3 3 ml INH RQ6 PRN #100 unit 12/18/16 mg/0.5 mg (3 ml) UD] Amoxicillin/Clavulanate [Augmentin 1 tab PO BID #10 tab 12/18/16 875 MG-125 MG] Azithromycin [Zithromax] 250 mg PO DAILY #3 tab 12/18/16 Insulin Detemir [Levemir] 10 unit SC HS #10 ml 12/18/16 Insulin Human Regular [HumuLIN R] 0 units SC ACHS #10 ml 12/18/16 Methylprednisolone [Medrol Dose 4 mg PO TID #21 mg 12/18/16 Pack (21 tabs)] Nebulizer and Compressor [Easy Air 1 each MC BID #1 each 12/18/16 Compressor Nebulizer] Nystatin/Triamcinolone [Mycolog 1 appl TP BID #1 tube 12/18/16 Cream] Salmeterol Xinafoate/Fluticaso 1 aer IH BID #1 aer 12/18/16 [Advair Hfa 230/21] Syringe and Needle,Insulin,1Ml 1 each MC QID #100 disp.syrin 12/18/16 [Easy-Touch Insulin Syringe] Zinc Oxide 13% [Desitin 13%] 1 applic TOP TID PRN #1 bottle 12/18/16 Penicillin VK [Penicillin VK Tab] 500 mg PO QID #40 tab 09/28/17 - Allergies Allergies/Adverse Reactions: Allergies Allergy/AdvReac Type Severity Reaction Status Date / Time No Known Allergies Allergy Verified 09/28/17 11:43 Review of Systems ROS Statement: Except As Marked, All Systems Reviewed And Found Negative Constitutional: Negative for: Fever, Chills ENT: Positive for: Mouth Pain (dental pain) Physical Exam - Reviewed Nursing Documentation Reviewed: Yes Vital Signs Reviewed: Yes - Physical Exam Appears: Positive for: Well, Non-toxic, No Acute Distress Head Exam: Positive for: ATRAUMATIC, NORMAL INSPECTION, NORMOCEPHALIC Skin: Positive for: Normal Color, Warm, Dry Eye Exam: Positive for: Normal appearance ENT: Positive for: Other (left lower mandible, tooth #19 noted with dental cavities and mild dental gingivitis.) Neurologic/Psych: Positive for: Alert, Oriented - ECG O2 Sat by Pulse Oximetry: 100 (RA) Pulse Ox Interpretation: Normal Medical Decision Making Medical Decision Making: Initial Impression: Dental Pain Initial Plan: --Will prescribe and recommend Tylenol in addition to Motrin for pain relief. Advised to follow-up with dentist. ~ Scribe Attestation: Documented by Cedric Marie, acting as a scribe for Daisha Stephens PA-C. Provider Scribe Attestation: All medical record entries made by the Scribe were at my direction and personally dictated by me. I have reviewed the chart and agree that the record accurately reflects my personal performance of the history, physical exam, medical decision making, and the department course for this patient. I have also personally directed, reviewed, and agree with the discharge instructions and disposition. Disposition - Clinical Impression Clinical Impression: Toothache - Patient ED Disposition Is Patient to be Admitted: No - Disposition Referrals: Manny Crowe DDS [Staff Provider] - Disposition: Routine/Home Disposition Time: 12:40 Condition: FAIR Prescriptions: Penicillin VK [Penicillin VK Tab] 500 mg PO QID #40 tab Instructions: Dental Pain (DC) Forms: [employer] (Tai[place]ese), [facility] ED School/Work Excuse
== END 2017-09-28 12:41 | disposition home or self-care (01) ==
LOC: H.ER 11:21
DX: K08.89 Other specified disorders of teeth and supporting structures (principal); E11.9 Type 2 diabetes mellitus without complications; Z79.4 Long term (current) use of insulin; I10 Essential (primary) hypertension